=== PATIENT | male | born 2000 | race Caucasian/White ===

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

== ENCOUNTER 2018-10-29 18:22 | Emergency (ER) | payer SELFPAY ==
[2018-10-29 18:38] VITALS: TEMP 97.7
[2018-10-29 19:41] VITALS: RESP 18; O2SAT 100
[2018-10-29 19:42] VITALS: BP 134/110; PULSE 128
== END 2018-10-29 19:30 | disposition home or self-care (01) | DRG 603 ==
LOC: ED 18:22
DX: L08.9 Local infection of the skin and subcutaneous tissue, unspecified (principal); R00.0 Tachycardia, unspecified
CPT/HCPCS: 93005; 99283

== ENCOUNTER 2018-12-17 16:04 | Emergency (ER) | payer SELFPAY ==
[2018-12-17 16:23] VITALS: O2SAT 98
[2018-12-17 17:06] LABS: AMPHETAMINES NEGATIVE (NEGATIVE); BARBITUATES NEGATIVE (NEGATIVE); BENZODIAZEPINES NEGATIVE (NEGATIVE); CANNABINOL(THC) POSITIVE (NEGATIVE); COCAINE(COC) NEGATIVE (NEGATIVE); METHADONE NEGATIVE (NEGATIVE); OPIATES(OPI) NEGATIVE (NEGATIVE); PROPOXYPHENE(PPX) NEGATIVE (NEGATIVE); TRICYCLIC ANTIDEPRESSANTS NEGATIVE (NEGATIVE)
[2018-12-17 17:07] LABS: METHAMPHETAMINES NEGATIVE (NEGATIVE); OXYCODONE(OXY) NEGATIVE (NEGATIVE)
[2018-12-17 17:21] LABS: BASOPHILS % (AUTO) 1 % (0-3); EOSINOPHILS % (AUTO) 3 % (0-9); HEMATOCRIT 44 % (39-53); HEMOGLOBIN 14.2 gm/dl (13.5-17.7); LYMPHOCYTES % (AUTO) 25.2 % (10-50); MEAN CORPUSCULAR HEMOGLOBIN 26.5 pg (27.0-32.0); MEAN CORPUSCULAR HGB CONC 32.1 gm/dl (32.0-36.0); MEAN CORPUSCULAR VOLUME 82 fL (80-100); NEUTROPHILS % (AUTO) 63.9 % (37-80)
[2018-12-17 17:28] LABS: APPEARANCE,URINE Clear; BILIRUBIN,URINE NEGATIVE (NEGATIVE); COLOR,URINE Yellow; GLUCOSE, URINE (UA) NEGATIVE (NEGATIVE); KETONES,URINE NEGATIVE (NEGATIVE); LEUKOCYTE ESTERASE ,URINE NEGATIVE (NEGATIVE); NITRATE,URINE NEGATIVE (NEGATIVE); OCCULT BLOOD,URINE NEGATIVE (NEG-TRACE); PH,URINE 8.5; UROBILINOGEN,URINE 0.2 (0.2-1.0 EU)
[2018-12-17 17:39] LABS: BACTERIA RARE (< 1+); CRYSTALS NEGATIVE (0-3 AVE/HPF); EPITHELIAL CELLS NEGATIVE (SQUAMOUS); RBC,URINE NEG (0-3AV/HPF); WBC,URINE 0-2 (0-5AV/HPF)
[2018-12-17 17:52] LABS: ALBUMIN 3.8 gm/dl (3.4-5.0); ALKALINE PHOSPHATASE 77 IU/L (46-116); ALT 28 IU/L (14-63); AST 18 IU/L (15-37); BILIRUBIN,TOTAL 0.2 mg/dl (0.2-1.0); BLOOD UREA NITROGEN 11 mg/dl (7-18); CALCIUM 8.4 mg/dl (8.5-10.1); CARBON DIOXIDE 28.6 mEq/L (21-32); CHLORIDE 105 mMol/L (98-107); CREATININE 0.77 mg/dl (0.80-1.30); GLUCOSE 93 mg/dl (74-106); MAGNESIUM 1.9 mg/dl (1.8-2.4); POTASSIUM 4.3 mMol/L (3.5-5.1); SALICYLATE < 2.8 mg/dl (2.8-30.0); SODIUM 143 mMol/L (136-145); THYROID STIMULATING HORMONE 0.464 uIU/ml (0.358-3.740); TOTAL PROTEIN 6.9 gm/dl (6.4-8.2)
[2018-12-17 17:53] LABS: ACETAMINOPHEN < 2 ug/ml (10-30); ALCOHOL 0.003 gm/dl (0.000-0.08)
[2018-12-17 20:28] VITALS: BP 134/88; PULSE 72; RESP 20; TEMP 98.2
== END 2018-12-17 20:15 | disposition home or self-care (01) | DRG 880 ==
LOC: ED 16:04
DX: R45.851 Suicidal ideations (principal); F22 Delusional disorders; F19.10 Other psychoactive substance abuse, uncomplicated
CPT/HCPCS: 36415; 80053; 80305; 80307; 81001; 83735; 84443; 85025; 99283

== ENCOUNTER 2019-03-23 19:51 | Emergency (ER) | payer MEDICAID ==
[2019-03-23 20:05] VITALS: RESP 16; TEMP 96.9
[2019-03-23 20:09] VITALS: BP 131/75; PULSE 88; O2SAT 98
[2019-03-23] MEDS ORDERED: KETOROLAC TROMETHAMINE 30 MG/ML SOL IM ONE (20:17)
[2019-03-23] MEDS ORDERED: ACETAMI/HYDROCO 325/10 TAB PO ONE (20:18)
[2019-03-23] MEDS ORDERED: APAP/HYDROCODONE 1 EACH TABLET PO ONE (20:20)
[2019-03-23] MEDS ORDERED: KETOROLAC TROMETHAMINE 30 MG/ML SOL ONE (20:21)
[2019-03-23] MEDS ORDERED: APAP/HYDROCODONE 1 EACH TABLET ONE (20:23)
== END 2019-03-23 21:17 | disposition home or self-care (01) | DRG 605 ==
LOC: ED 19:51
DX: S20.212A Contusion of left front wall of thorax, initial encounter (principal); V28.0XXA Motorcycle driver injured in noncollision transport accident in nontraffic accident, initial encounter
CPT/HCPCS: 71101; 73030; 96372; 99283; J1885; A9270-GY